=== PATIENT | male | born 1995 | race Caucasian/White ===

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

== ENCOUNTER 2018-04-30 16:57 | Emergency (ER) | payer OTHER ==
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
[2018-04-30] MEDS ORDERED: CEPHALEXIN 500 MG CAP PO ONE (17:57)
[2018-04-30 19:09] VITALS: BP 116/76
== END 2018-04-30 19:10 | disposition home or self-care (01) ==
PROC: 0HQRXZZ Repair Toe Nail, External Approach (ICD-10-PCS; principal; 2018-04-30)
PROC: 0H9RXZZ Drainage of Toe Nail, External Approach (ICD-10-PCS; 2018-04-30)
DX: S91.205A Unspecified open wound of left lesser toe(s) with damage to nail, initial encounter (principal); S90.212A Contusion of left great toe with damage to nail, initial encounter; W20.8XXA Other cause of strike by thrown, projected or falling object, initial encounter; Y92.9 Unspecified place or not applicable; Y93.9 Activity, unspecified; Y99.9 Unspecified external cause status